=== PATIENT | female | born 1985 | race Two or more races ===

== ENCOUNTER 2020-12-04 18:29 | Emergency (ER) | payer MEDICAID, OTHER ==
[~2020-12-04] VITALS: Ht 160 cm; Wt 72.6 kg
[2020-12-04 20:00] VITALS: BP 116/79
== END 2020-12-04 21:00 | disposition home or self-care (01) ==
LOC: EDBD 18:29 → ER 18:32
DX: S83.91XA Sprain of unspecified site of right knee, initial encounter (principal); W18.09XA Striking against other object with subsequent fall, initial encounter; Y93.89 Activity, other specified; Y92.89 Other specified places as the place of occurrence of the external cause; Y99.8 Other external cause status
CPT/HCPCS: 29505; 73562